=== PATIENT | male | born 1960 | race Caucasian/White ===

== ENCOUNTER → 2023-05-19 08:14 | Outpatient (REF) | payer OTHER, SELFPAY | LOC: HWRAD 08:14 | PROVIDERS: ATTENDING PHYSICIAN Internal Medicine Critical Care Medicine; FAMILY PHYSICIAN Internal Medicine | DX: J84.9 Interstitial pulmonary disease, unspecified (principal); J84.10 Pulmonary fibrosis, unspecified | CPT/HCPCS: 71250 ==

== ENCOUNTER → 2024-03-06 11:14 | Outpatient (REF) | payer OTHER, SELFPAY | LOC: RAD 11:14 | PROVIDERS: ATTENDING PHYSICIAN Nurse Practitioner | DX: J98.4 Other disorders of lung (principal); R05.3 Chronic cough; J84.10 Pulmonary fibrosis, unspecified | CPT/HCPCS: 71046 ==

== ENCOUNTER → 2024-03-24 07:07 | Outpatient (REF) | payer OTHER, SELFPAY | LOC: RCS 07:07 | PROVIDERS: ATTENDING PHYSICIAN Nurse Practitioner | DX: J84.10 Pulmonary fibrosis, unspecified (principal); R06.02 Shortness of breath | CPT/HCPCS: 93306 ==

== ENCOUNTER → 2024-07-30 07:50 | Outpatient (REF) | payer OTHER, SELFPAY | LOC: EMG 07:50 | PROVIDERS: ATTENDING PHYSICIAN Internal Medicine Rheumatology; FAMILY PHYSICIAN Internal Medicine | DX: R20.0 Anesthesia of skin (principal) | CPT/HCPCS: 95886; 95913 ==

== ENCOUNTER → 2024-07-31 10:25 | Outpatient (REF) | payer OTHER, SELFPAY | LOC: RAD 10:25 | PROVIDERS: ATTENDING PHYSICIAN Hospitalist | DX: M79.89 Other specified soft tissue disorders (principal) | CPT/HCPCS: 93971 ==

== ENCOUNTER 2024-12-04 06:40 | Outpatient (RCR) | payer SELFPAY | END 2024-12-04 15:34 | disposition home or self-care (01) | LOC: ROT 06:40 | PROVIDERS: ATTENDING PHYSICIAN Hospitalist | DX: Z02.4 Encounter for examination for driving license (principal) ==